=== PATIENT | male | born 1960 | race American Indian/Alaskan Native ===

== ENCOUNTER 2017-02-04 03:23 | Emergency (ER) | payer SELFPAY ==
[2017-02-04] MEDS ORDERED: PEPCID IV ONE ×2 (03:40→03:55)
[2017-02-04] MEDS ORDERED: CATAPRES ONE (03:40)
[2017-02-04] MEDS ORDERED: CATAPRES PO ONE (03:40)
[2017-02-04] MEDS ORDERED: BENADRYL ONE (03:41)
[2017-02-04] MEDS ORDERED: BENADRYL IV ONE (03:55)
[2017-02-04 04:29] LABS: Basophils % (Auto) 0.4 % (0.0-1.8); Eosinophils % (Auto) 0.8 % (0.0-4.3); Hematocrit 41.1 % (35.5-45.6); Hemoglobin 13.7 gm/dl (11.8-15.2); Mean Corpuscular HGB Conc 33 % (32-34); Mean Corpuscular Hemoglobin 31 pg (28-32); Mean Corpuscular Volume 93 fl (84-94); Platelet Count 223 K/mm3 (140-440); Red Blood Count 4.44 M/mm3 (3.65-5.03); Red Cell Distribution Width 12.5 % (13.2-15.2); White Blood Count 11.2 K/mm3 (4.5-11.0)
[2017-02-04 05:01] LABS: Anion Gap 23 mmol/L; BUN/Creatinine Ratio 16; Blood Urea Nitrogen 11 mg/dL (9-20); Calcium 9.8 mg/dL (8.4-10.2); Carbon Dioxide 27 mmol/L (22-30); Chloride 92.9 mmol/L (98-107); Glucose 95 mg/dL (75-100); Sodium 139 mmol/L (137-145)
--- NOTE | 2017-02-04 07:59 | Emergency Department Report ---
HPI - General Chief Complaint: Allergic Reaction Time Seen by Provider: 02/04/17 07:46 - HPI HPI: Patient reports that he had an allergic reaction yesterday at about 2 PM after eating spaghetti ground turkey and sauce. He states that he started having trouble swallowing. Denies any shortness of breath or difficulty breathing. He reports swollen lip and tongue 12 hours. He had vomiting at the time. He does not have any vomiting since his visit in the emergency room. Denies any cough or wheezing. Denies any fever or chills. He reports that he thinks that something that was in a sauce that made him mad and allergic reaction. Patient does not take lisinopril he took it in the past 5 blood pressure but he said he has not taken the long time. Blood pressure was elevated at 190/120 and he remained asymptomatic. He was given clonidine 0.1 mg in triage area and her reevaluate. ED Past Medical Hx - Past Medical History Previous Medical History?: Yes Hx Hypertension: Yes Hx Arthritis: Yes - Surgical History Past Surgical History?: No - Family History Family history: hypertension - Social History Smoking Status: Never Smoker Substance Use Type: None - Medications Home Medications: Home Medications Medication Instructions Recorded Confirmed Last Taken Type Lisinopril [Zestril TAB] 10 mg PO QDAY #30 tablet 06/17/13 Unknown Rx Loperamide [Imodium] 2 mg PO Q2HR #20 capsule 06/17/13 Unknown Rx Promethazine [Phenergan] 25 mg PO Q6H PRN #20 tablet 06/17/13 Unknown Rx Amlodipine Besylate [Norvasc] 10 mg PO QAM #30 tablet 02/04/17 Unknown Rx Cetirizine HCl [ZyrTEC] 10 mg PO QAM #7 capsule 02/04/17 Unknown Rx Hydrochlorothiazide [HCTZ] 25 mg PO QDAY #30 tablet 02/04/17 Unknown Rx Potassium Chloride [K-Dur] 20 meq PO QAM #30 tablet 02/04/17 Unknown Rx diphenhydrAMINE [Benadryl CAP] 50 mg PO BID PRN #10 capsule 02/04/17 Unknown Rx ED Review of Systems ROS: Stated complaint: POSSIBLE ALLERGIC REACTION Other details as noted in HPI Comment: All other systems reviewed and negative Constitutional: no symptoms reported Eyes: denies: eye pain, vision change ENT: other (Swelling to lower lip and tonguie and diffficulty swallowing). denies: throat pain, dental pain, epistaxis, congestion Respiratory: no symptoms reported Cardiovascular: denies: chest pain, palpitations, dyspnea on exertion, edema, syncope Gastrointestinal: vomiting. denies: abdominal pain, nausea, diarrhea Genitourinary: denies: urgency, dysuria, frequency, hematuria, discharge Musculoskeletal: denies: back pain, arthralgia, myalgia Skin: denies: rash Neurological: denies: headache, numbness, paresthesias, confusion Physical Exam - Physical Exam Vital Signs: Vital Signs 02/04/17 02/04/17 03:25 03:40 Temperature 98.2 F Pulse Rate 112 H Respiratory 22 Rate Blood Pressure 190/120 190/120 General: This is a 56-year-old male well-nourished well-developed in no acute distress. Physical Exam: Head: Normocephalic, atraumatic, no abrasion, no bruising and no contusion. Eyes: Biateral pupils equal and reactive to light, bilateral EOM intact.. Bilateral conjunctival and sclera without injection, normal accommodation. Ears: Bilateral EAC without any redness drainage or swelling, bilateral TM pearly romeo bilateral tragus is normal and nontender. No auricular abnormality. No Mastoid bones tenderness. Nose: Moist, normal mucosa, no maxillary or frontal sinus tenderness Mouth: Positive swelling to.Lower lip, Uvula is midline and oral airways patent. Moist and tongue is normal. Neck: Supple,No Cervical adenopathy, full range of motion and no C-spine tenderness. No swelling or tracheal deviation. no swelling to the neck noted Cardiovascular: S1, S2. Regular rate and rhythm. No murmur. Capillary refill is less then 3 seconds. Blood pressure elevated Neurological: No facial drooping, speech is clear and fluid, alert and oriented 3. Normal gait, negative Romberg and pronator drift. No motor or sensory deficit. Bilateral reflexes are normal. Lungs: Clear to auscultate bilaterally. No rhonchi, wheezes or rales. No chest wall tenderness MSK: Strength 5/5 in all extremities. No joint deformity or crepitus. Normal inspection. Full range of motion to all extremities Extremities: No clubbing, cyanosis or edema. +2 pulses. No neurovascular compromise Skin: Clean, dry and intact. No rash or lesions. Psych: Normal mood and behavior. ED Course Vital Signs 02/04/17 02/04/17 03:25 03:40 Temperature 98.2 F Pulse Rate 112 H Respiratory 22 Rate Blood Pressure 190/120 190/120 Vital Signs 02/04/17 02/04/17 03:25 03:40 Temperature 98.2 F Pulse Rate 112 H Respiratory 22 Rate Blood Pressure 190/120 190/120 Vital Signs 02/04/17 02/04/17 02/04/17 03:25 03:40 08:31 Temperature 98.2 F 98.6 F Pulse Rate 112 H 72 Respiratory 22 18 Rate Blood Pressure 190/120 190/120 Blood Pressure 175/116 [Left] Blood Pressure 186/114 [Right] O2 Sat by Pulse 100 Oximetry 02/04/17 02/04/17 09:05 09:42 Temperature Pulse Rate 72 76 Respiratory Rate Blood Pressure 186/114 Blood Pressure [Left] Blood Pressure 146/93 [Right] O2 Sat by Pulse Oximetry - Reevaluation(s) Reevaluation #1: 02/04/17 08:46 Patient swelling to lip and tongue is better. He has no swelling to the tongue and his lip, lower mild swelling and patient said the swelling has gone down significantly. He was given Benadryl 50 mg IV, Solu-Medrol 125 mg IV and Pepcid 10 mg and triage area. Reevaluation #2: 02/04/17 08:53 Blood pressure remained elevated therefore patient was given hydralazine IV and we'll reevaluate. She had high blood pressure and said he was on lisinopril in the past but he stopped taking it for some reason. I discussed with him that I will start him on Norvasc and HCTZ would a potassium supplement and he will need to [facility] for management of chronic blood pressure problems Reevaluation #3: 02/04/17 09:44 Blood pressure is better after hydralazine 20 mg given IV. Patient is stable. Swelling to lip resolving and swelling to tongue resolved. Patient said he is feeling much better. He is able to tolerate oral liquids without any difficulties. ED Medical Decision Making - Lab Data Result diagrams: 02/04/17 04:00 02/04/17 04:00 Lab Results 10/17/17 10/17/17 Range/Units 04:00 04:00 WBC 11.2 H (4.5-11.0) K/mm3 RBC 4.44 (3.65-5.03) M/mm3 Hgb 13.7 (11.8-15.2) gm/dl Hct 41.1 (35.5-45.6) % MCV 93 (84-94) fl MCH 31 (28-32) pg MCHC 33 (32-34) % RDW 12.5 L (13.2-15.2) % Plt Count 223 (140-440) K/mm3 Lymph % (Auto) 14.0 (13.4-35.0) % Allen % (Auto) 6.4 (0.0-7.3) % Eos % (Auto) 0.8 (0.0-4.3) % Baso % (Auto) 0.4 (0.0-1.8) % Lymph # 1.6 (1.2-5.4) K/mm3 Allen # 0.7 (0.0-0.8) K/mm3 Eos # 0.1 (0.0-0.4) K/mm3 Baso # 0.0 (0.0-0.1) K/mm3 Seg Neutrophils % 78.4 H (40.0-70.0) % Seg Neutrophils # 8.8 H (1.8-7.7) K/mm3 Sodium 139 (137-145) mmol/L Potassium 4.0 (3.6-5.0) mmol/L Chloride 92.9 L (98-107) mmol/L Carbon Dioxide 27 (22-30) mmol/L Anion Gap 23 mmol/L BUN 11 (9-20) mg/dL Creatinine 0.7 L (0.8-1.5) mg/dL Estimated GFR > 60 ml/min BUN/Creatinine Ratio 16 % Glucose 95 (75-100) mg/dL Calcium 9.8 (8.4-10.2) mg/dL - Medical Decision Making ED course: In here after having an minor and anaphylaxis to food. He had anaphylaxis yesterday at 2 PM and arrived here early this morning in for treatment because he said his lips and tongue was swollen and it was difficult for him to swallow. Patient was given Benadryl 50 mg IV, Solu-Medrol 20 mg IV and Pepcid 20 mg IV in emergency room. Patient has been monitored since then medication given for approximately 6 hours and resolution to swelling to lips and complete resolution of swelling to tongue and he has no further difficulty swallowing. His blood pressures elevated and he has a history of high blood pressure and has not taken lisinopril for over 3 years. He also does not follow -up for blood pressure monitoring and said he doesn't have a primary care physician. Patient was given clonidine 0.1 mg in triage area which did not resolve his blood pressure problem and he was given hydralazine 20 mg IV with stable blood pressure approximately 1 hour after hydralazine given. She is aware that he is to follow-up at [facility] for management of chronic hypertension. I also discussed with him that he needs to return to the hospital F allergic symptoms return and I gave him discharge instructions on what to look for along with explanation. Patient discharged home with family in stable condition and he was given prescription for Norvasc, hydrochlorothiazide and told with free at [facility] and potassium supplement and I explained to him the reason why he has to take potassium. Patient was undescended discharge instruction and discharged home in stable condition with his family member. Critical care attestation.: If time is entered above; I have spent that time in minutes in the direct care of this critically ill patient, excluding procedure time. ED Disposition Clinical Impression: Elevated blood pressure reading with diagnosis of hypertension Allergic reaction to food Qualifiers: Encounter type: initial encounter Qualified Code(s): T78.1XXA - Other adverse food reactions, not elsewhere classified, initial encounter Anaphylaxis due to food Qualifiers: Encounter type: initial encounter Qualified Code(s): T78.00XA - Anaphylactic reaction due to unspecified food, initial encounter Disposition: DC-01 TO HOME OR SELFCARE Is pt being admited?: No Does the pt Need Aspirin: No Condition: Stable Instructions: Heart Healthy Diet (ED), Food Allergy (ED), Anaphylaxis (ED), How to Take a Blood Pressure (ED), DASH Eating Plan (ED), Low Sodium Diet (ED) , Hypertension (ED) Additional Instructions: Please follow up for [facility] as discussed. Call today to schedule an appointment Blood pressure is elevated in emergency room on several occasion. Please start blood pressure medication as discussed. These medication or free at [facility]. Take your blood pressure daily and keep a log and take your primary care visit with you Elevated blood pressure done is not managed can lead to stroke, kidney failure, heart attack and possibly . If you develop, increase when a flipped tongue, neck, wheezing, cough, stridor, difficulty breathing and wheezing, chest tightness please return to the emergency room ETHEL Read discharge instructions on elevated blood pressure and allergic reaction See discharge instructions on low sodium diet and healthy heart diet. Please do not drive or operate heavy machinery while taking Benadryl as this medication will cause drowsiness Prescriptions: Amlodipine Besylate [Norvasc] 10 mg PO QAM #30 tablet Cetirizine HCl [ZyrTEC] 10 mg PO QAM #7 capsule diphenhydrAMINE [Benadryl CAP] 50 mg PO BID PRN #10 capsule PRN Reason: Allergic Reaction Hydrochlorothiazide [HCTZ] 25 mg PO QDAY #30 tablet Potassium Chloride [K-Dur] 20 meq PO QAM #30 tablet Referrals: [facility] [Outside] - 2-3 Days Forms: Accompanied Note, Work/School Release Form(ED)
[2017-02-04] MEDS ORDERED: APRESOLINE IV ONE (08:54)
[2017-02-04 09:44] VITALS: BP 146/93
== END 2017-02-04 10:06 | disposition home or self-care (01) ==
LOC: ED 03:23
DX: I10 Essential (primary) hypertension (principal); T78.1XXA Other adverse food reactions, not elsewhere classified, initial encounter; M19.90 Unspecified osteoarthritis, unspecified site; X58.XXXA Exposure to other specified factors, initial encounter
CPT/HCPCS: 36415; 80048; 85025; 96374; 96375; 99283; J0360; J1200; J2930